=== PATIENT | female | born 1945 | race African-American/Black ===

== ENCOUNTER 2017-10-01 07:59 | Emergency (ER) | payer MEDICARE ==
--- NOTE | 2017-10-01 09:20 | RAD ---
TWO VIEWS CHEST: Comparison: 01-20-15 History: Cough. FINDINGS: Two views of the chest shows normal sized cardiomediastinal silhouette. There is blunting of both cos tophrenic angles which may represent scarring or small bilateral pleural effusions. This has not sign ificantly changed compared to the prior exam. IMPRESSION: Small bilateral pleural effusions versus bibasilar atelectasis/scarring. POS: [facility]
== END 2017-10-01 09:20 | disposition home or self-care (01) ==
LOC: ERS 07:59
DX: R05 Cough (principal)
CPT/HCPCS: 71020; 99406

== ENCOUNTER 2017-11-12 13:35 | Emergency (ER) | payer MEDICARE ==
[2017-11-12 14:24] LABS: #Eosinphils 0.1 thou/uL (0.0-0.7); #Lymphocytes 1.2 thou/uL (1.20-3.40); #Neutrophils 7.4 thou/uL (1.40-6.50); %Basophils 0.2 % (0.0-1.0); %Eosinophils 0.7 % (0.0-10.0); %Lymphocytes 12.4 % (21.0-51.0); %Monocytes 10.5 % (0.0-10.0); %Neutrophils 76.2 % (42.0-75.0); Hemoglobin 9.8 g/dL (12.0-16.0); Mean Corpuscular HGB CONC 32.1 g/dL (32.0-36.0); Mean Corpuscular Hemoglobin 29.2 pg (27.0-31.0); Mean Corpuscular Volume 90.8 fl (81.0-99.0); Mean Platelet Volume 7.1 fL (7.4-10.4); Platelet Count 478 thou/uL (130-400); RBC Distribution Width 12.4 % (11.5-14.5); Red Blood Cell (RBC) Count 3.37 mill/uL (4.20-5.40); White Blood Cell (WBC) Count 9.8 thou/uL (4.8-10.8)
[2017-11-12] MEDS ORDERED: ISOVUE-370 76%-LOCM 1 ML ONE (14:30)
--- NOTE | 2017-11-12 14:41 | RAD ---
CHEST 1 VIEW: Date: 11/12/17 HISTORY: 72-year-old female with chest pain. COMPARISON: 10/01/17. FINDINGS: There is moderate left pleural effusion which has developed since the prior study. There is slight co stophrenic angle blunting, although this actually appears slightly improved. There appear to be some nodular soft tissue mass changes involving the left superior mediastinal region and along the left mckeon perior and lateral chest wall, and in the left retrocardiac region. Heart size is somewhat difficult to assess because of the pleural effusion, but does not appear to be grossly enlarged. No overt acute edema. IMPRESSION: Increasing left pleural effusion. Fairly extensive pleural masses, including the superior left medias tinum, apex, and lateral chest wall, as well as a nodular focus in the left retrocardiac region. Find ings are certainly concerning for widespread pleural or pleural based mass/masses. Further evaluation with chest CT scan is recommended. Findings discussed with Dr. Webster in the ER at 1430 hours. CODE CR. POS: [facility]
[2017-11-12 14:51] LABS: ALT (SGPT) 11 U/L (8-55); AST (SGOT) 18 U/L (5-34); Albumin 3.9 g/dL (3.4-4.8); Alkaline Phosphatase 106 U/L (40-150); Anion Gap 14 mmol/L (10-20); BUN (Urea Nitrogen) 18 mg/dL (9.8-20.1); Bilirubin, Total 0.3 mg/dL (0.2-1.2); CK (CPK) 36 U/L (29-168); Calc. Creatinine Clearance 0 mL/min (70-130); Carbon Dioxide 27 mmol/L (23-31); Chloride 100 mmol/L (98-107); Estimated GFR-MDRD Greater than 90; Globulin 4.2 g/dL (2.4-3.5); Glucose 92 mg/dL (80-115); Lipase 15 U/L (8-78); Potassium 3.8 mmol/L (3.5-5.1); Protein, Total 8.1 g/dL (6.0-8.3); Sodium 137 mmol/L (136-145)
[2017-11-12 14:53] LABS: Calcium 12.9 mg/dL (7.8-10.44)
[2017-11-12 14:54] LABS: CKMB 1.2 ng/mL (0-6.6); Troponin I 0.018 ng/mL (< 0.028)
--- NOTE | 2017-11-12 15:49 | CT ---
CT PULMONARY ANGIOGRAM WITH IV CONTRAST AND 3D POSTPROCESSIN11/12/17 HISTORY: Dyspnea. FINDINGS: Comparison is made with the exam of 02/10/10. The pulmonary artery vasculature is well opacified without filling defects to suggest pulmonary embol ism. The thoracic aorta is well opacified without aneurysmal dissection. 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 There has been interval development of nodular circumferential pleural thickening in the left hemitho rax with a moderate sized left pleural effusion. There is a 1 cm mediastinal lymph node in the AP win daphnie, 8 mm right paraesophageal lymph node in the inferior posterior mediastinum and multiple enlarged lymph nodes in the left pericardiac region. There are mild emphysematous changes. Multiple small par enchymal nodules are seen in the right lung measuring up to 4 mm. Upper abdominal tomograms demonstra te a 1.7 cm left para-aortic lymph node. There are degenerative changes in the spine. IMPRESSION: 1. No CT evidence of pulmonary embolism. 2. Findings suspicious for pleural based malignancy/metastatic disease. POS: [facility]
--- NOTE | 2017-12-21 14:21 | EKG ---
Test Reason : Blood Pressure : / mmHG Vent. Rate : 111 BPM Atrial Rate : 111 BPM P-R Int : 144 ms QRS Dur : 076 ms QT Int : 326 ms P-R-T Axes : 053 049 026 degrees QTc Int : 443 ms Sinus tachycardia Otherwise normal ECG Confirmed by MICHELE NEGRO M.D. ([id number]), commissioning editor YANETH HAWKINS ([id number]) on 12/21/2017 2:21:02 PM Referred By: Confirmed By:MICHELE NEGRO M.D.
== END 2017-11-12 17:24 | disposition home or self-care (01) ==
LOC: ERS 13:35
DX: J91.8 Pleural effusion in other conditions classified elsewhere (principal); R91.8 Other nonspecific abnormal finding of lung field
CPT/HCPCS: 71045; 71275; 80053; 82553; 83690; 84484; 85025; 93005; 94760

== ENCOUNTER 2017-11-18 07:44 | Day surgery (SDC) | payer MEDICARE ==
--- NOTE | 2017-11-18 08:54 | PDOC.THORA ---
Thoracentesis Procedure Note - Procedure Date: 11/18/17 Time: 08:52 - PreProcedure Diagnosis: Left pleural effusion, suspected to be malignant - PostProcedure Diagnosis: Left pleural effusion, suspected to be malignant - Anesthesia Anesthesia: 1% Lidocaine without epinephrine - Description Patient tolerated procedure: well Procedure in Details: Informed consent obtained from patient. Time-out performed prior, and site marked as left. Chlorohexedine prep to site 1% lidocaine applied to entry site (5th-6th interspace at Left lateral scapular line posteriorly) Sail-f-jdagkhmh catheter inserted into left pleural space 470 ml of red/brown pleural fluid removed Well tolerated Specimens sent to pathology
[2017-11-18 09:28] LABS: Body Fluid Source THORACENTESIS FLD
[2017-11-18 09:29] LABS: BF Color Red; Clarity Cloudy/Turbid (Clear); RBC Background Count 0.006; Tube # EDTA
[2017-11-18 09:30] LABS: RBC Count-Automated 51000 /cumm; WBC/NonHematic-Auto 5320 /cumm
[2017-11-18 09:43] LABS: Pleural Fluid, Protein 4.6 g/dL
[2017-11-18 10:41] LABS: BF Segmented Neutrophils 5 %; Cell Count Non Hematic 31 %; Lymphocytes 64 %
== END 2017-11-18 08:55 | disposition home or self-care (01) ==
LOC: SDC 07:44
PROVIDERS: ATTEND Internal Medicine Critical Care Medicine
PROC: 0W9B3ZX Drainage of Left Pleural Cavity, Percutaneous Approach, Diagnostic (ICD-10-PCS; principal; 2017-11-18)
DX: J90 Pleural effusion, not elsewhere classified (principal); Z90.710 Acquired absence of both cervix and uterus; Z87.891 Personal history of nicotine dependence
CPT/HCPCS: 32554; 82150; 82945; 83615; 84157; 84478; 85060; 87070; 87116; 87205; 87206; 88112; 88305; 89051

== ENCOUNTER 2017-11-26 08:54 | Inpatient (IN) | payer MEDICARE ==
[2017-11-26] MEDS ORDERED: Fentanyl 100 MCG/2 ML VIAL ONE ×3 (09:27→13:57)
[2017-11-26] MEDS ORDERED: CEFAZOLIN/Water 2 GM/20 ML SYRINGE ONE (10:00)
[2017-11-26 10:10] LABS: #Monocytes 0.9 thou/uL (0.11-0.59); %Basophils 0.1 % (0.0-1.0); %Eosinophils 0.6 % (0.0-10.0); %Monocytes 13.2 % (0.0-10.0); %Neutrophils 71.2 % (42.0-75.0); Mean Corpuscular HGB CONC 31.7 g/dL (32.0-36.0); Mean Corpuscular Hemoglobin 28.4 pg (27.0-31.0); Mean Corpuscular Volume 89.7 fl (81.0-99.0); Mean Platelet Volume 6.7 fL (7.4-10.4); Platelet Count 517 thou/uL (130-400); RBC Distribution Width 12.3 % (11.5-14.5)
[2017-11-26 10:21] LABS: Anion Gap 10 mmol/L (10-20); BUN (Urea Nitrogen) 13 mg/dL (9.8-20.1); Calc. Creatinine Clearance 63 mL/min (70-130); Carbon Dioxide 33 mmol/L (23-31); Chloride 99 mmol/L (98-107); Estimated GFR-MDRD 85; Glucose 90 mg/dL (80-115); Potassium 3.6 mmol/L (3.5-5.1); Sodium 138 mmol/L (136-145)
[2017-11-26 10:25] LABS: Calcium 15.1 mg/dL (7.8-10.44)
[2017-11-26] MEDS ORDERED: Lidocaine 1% w/Epinephrine 1:200K 30 ML VIAL ONE (11:12)
[2017-11-26] MEDS ORDERED: Ondansetron HCl/PF 4 MG/2 ML Vial IVP PRN ×3 (12:25→14:11)
[2017-11-26] MEDS ORDERED: Promethazine HCl 25 MG/ML VIAL SLOW IVP PRN (12:25)
[2017-11-26] MEDS ORDERED: Promethazine HCl 25 MG/ML VIAL IM PRN ×3 (12:25→14:11)
--- NOTE | 2017-11-26 12:30 | OP ---
DATE OF PROCEDURE: 11/26/2017 PREOPERATIVE DIAGNOSIS: Left pleural effusions/chest wall mass. PROCEDURE: Left thoracoscopy converted to thoracotomy with lung biopsy of the left upper lobe and chest wall biopsy in multiple areas. PleurX catheter placement. SURGEON: Jeff Morfin M.D. ANESTHESIA: General endotracheal. ESTIMATED BLOOD LOSS: Approximately 400. DRAINS: A PleurX catheter and a 28 Italian straight chest tube. PROCEDURE IN DETAIL: After consent was obtained, the patient was brought to the operating room and placed in the supine position on the operating room table. Appropriate anesthetic monitor was placed and general endotracheal anesthesia induced. The patient was placed in right lateral decubitus position. Joints were appropriately padded and SCDs used. The left chest wall was prepped and draped in usual sterile fashion. Skin incision was made over where the thoracoscopy was performed which was just inferior to the tip of the scapula. Sharp dissection and cautery dissection was used to dissect down over the superior margin of the rib. Chest was bluntly entered. On inserting my finger there was extensive adhesions and lots of abnormal feeling tissue. I elected to abandon the thoracoscopy due to no free pleural space. Incision was extended for approximately a total of 6 cm. Chest wall retractor was placed. On entering the chest, there was extensive amount of chest wall involvement with tumor. The thoracoscope was used to fully explore the chest revealing lung and chest wall implants throughout the chest. Multiple areas of the chest wall were biopsied. There was an area in the left upper lobe which was easily biopsied and sent for frozen section. This returned as non-small cell lung cancer. A 28 Italian chest tube was placed to the apex. A PleurX catheter was then placed along the inferior border of the lung, tunneling subcutaneously and placing the cuff at the anterior axillary line. Catheter was secured to the skin with silk suture. Ribs were reapproximated with #1 Vicryl. Wounds were closed in layers and Dermabond applied to the skin. Sterile dressings were applied. The patient was awakened,extubated, and transferred to the recovery room in stable condition. Needle, sponge and instrument counts were all reported correct at the end of the procedure. [facility]
[2017-11-26] MEDS ORDERED: diphenhydrAMINE 25 MG CAP PO PRN (12:33)
[2017-11-26] MEDS ORDERED: diphenhydrAMINE 50 MG/ML VIAL IVP PRN (12:33)
[2017-11-26] MEDS ORDERED: Zolpidem Tartrate 5 MG TAB PO PRN (12:33)
[2017-11-26] MEDS ORDERED: Fentanyl 5000 MCG/250 ML CADD IVPB PRN (12:33)
[2017-11-26] MEDS ORDERED: diphenhydrAMINE 50 MG/ML VIAL IM PRN (12:33)
[2017-11-26] MEDS ORDERED: Naloxone HCl 0.4 mg/ml Vial IV PRN (12:33)
[2017-11-26] MEDS ORDERED: fentaNYL Citrate/PF 2,000 MCG in Sodium Chloride 0.9% 60 ML IV PRN (12:45)
[2017-11-26] MEDS ORDERED: Communication Order-Pharmacy FS SCH (12:45)
[2017-11-26] MEDS ORDERED: Sodium Chloride 0.9% 1,000 ML IV SCH ×2 (13:45→14:11)
[2017-11-26] MEDS ORDERED: HYDROcodone/Acetaminophen 5/325 mg Tablet PO PRN ×2 (14:11)
--- NOTE | 2017-11-26 14:27 | RAD ---
RADIOGRAPH CHEST 1 VIEW: Date: 11/26/2017 Time: 12:38 p.m. HISTORY: A 72-year-old female, status post left thoracotomy. COMPARISON: 11/12/2017 FINDINGS: Again noted is the large number of masses extensively throughout the entire left pleural space. The volume of loculated left pleural effusion has decreased since the prior study. There are now two lef t-sided chest tubes. Again noted are the left mediastinal masses. Tiny scattered pulmonary nodules in the right lung are visualized, at least some of which represent calcified granulomata. There is m ild blunting of the right lateral costophrenic angle. No right-sided air space opacity, edema, or pu lmonary vascular engorgement. No pneumothorax. There is a small cluster of surgical clips overlying the left mid-lower lung zone. IMPRESSION: 1. Status post left thoracotomy, now with two new left-sided chest tubes and a cluster of surgical c lips. 2. Evidence for extensive left pleural metastatic disease. 3. Interval decrease in size of left pleural effusion, now small. DESTIN [] POS: [facility]
[2017-11-26] MEDS ORDERED: Zoledronic Acid 4 MG, Admixture Fee 1 EACH in Sodium Chloride 0.9% 100 ML IVPB SCH (14:45)
--- NOTE | 2017-11-26 14:57 | CON ---
DATE OF CONSULTATION: 11/26/2017 CONSULTING PHYSICIAN: Dr. Morfin. REASON FOR CONSULTATION: Pleural based malignancy. HISTORY OF PRESENT ILLNESS: Ms. Mcknight is a 72-year-old female who is well known to me from recent ou tpatient evaluation for malignant pleural effusion. She underwent a nondiagnostic thoracentesis in november and she was brought back today for thoracoscopy with findings of non-small cell cancer. Other significant findings include calcium level of 15. PAST MEDICAL HISTORY: See my history and physical dictated on 11/14/2017, which is in the computer. PHYSICAL EXAMINATION: VITAL SIGNS: O2 sats 100%, respiratory rate 14, pulse 112, blood pressure 120/80. GENERAL: She is awake and alert, in no distress. HEENT: Unremarkable. NECK: No JVD. LUNGS: Diminished breath sounds in the left base, right side clear. CARDIOVASCULAR: S1, S2 regular. ABDOMEN: Soft. EXTREMITIES: No edema. LABORATORY DATA: Reviewed. ASSESSMENT: 1. 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 2. Hypercalcemia of malignancy. PLAN: Discussed with pharmacy. We will go ahead and give the patient doses of Zometa 4 mg x1 as a b isphosphonate to lower her calcium level. Eventually, she will need Hematology/Oncology input. I ap preciate Dr. Morfin's help in managing this case.
[2017-11-26 14:59] VITALS: BMI 21.9
--- NOTE | 2017-11-26 15:10 | CON-2 ---
DATE OF CONSULTATION: 11/26/2017 ATTENDING: Dr. Hogue. RESIDENT: Jarod Jesus M.D. PRIMARY CARE PHYSICIAN: Dr. Ginette Poole M.D. CHIEF COMPLAINT: Consult for medical management by CV Surgery, Dr. Morfin. HISTORY OF PRESENT ILLNESS: This is a 72-year-old female clinic patient with past medical history of tobacco use, hypercalcemia up to 13.2 and hyperlipidemia who initially presented to the ER for evaluation of shortness of breath back at the beginning of November. At this time, CT scan performed of the chest showing pleural masses concerning for possible malignancy. The patient was followed up with Pulmonology, Dr. Bates who reportedly per CV surgeon attempted thoracentesis, but was unable to collect any fluid. At this time, Dr. Morfin with CV Surgery was contacted and the patient subsequently underwent a thoracoscopy, which was then converted to a thoracotomy with lung biopsy of the left upper lobe as well as multiple chest wall biopsies and PleurX catheter placement. In clinic, the patient with elevated calcium, complaining of fatigue which dates back to beginning of this year with high calcium per clinic records to 13.2. Subsequent workup was obtained with low level of vitamin D25 at 23 nanograms per mL. A suppressed anti-parathyroid hormone at less than 3.0 and elevated parathyroid related peptide at 5.3. The patient also endorses some muscle cramping as well during the limited interview that was able to be obtained while patient was in the PACU prior to transfer to floor postop. PAST MEDICAL HISTORY: 1. Hyperlipidemia. 2. Anemia of chronic disease. 3. History of bilateral fibroid adnexal masses status post hysterectomy with BSO. 4. Pleural masses. 5. Hypercalcemia. PAST MEDICAL HISTORY: 1. Laparoscopic BSO. 2. Thoracoscopy converted to thoracotomy with left upper lobe and chest wall biopsies. ALLERGIES: No known drug allergies. MEDICATIONS: Atorvastatin 10 mg p.o. at bedtime. FAMILY HISTORY: 1. Hypertension. 2. Chronic obstructive pulmonary disease. SOCIAL HISTORY: The patient is a former tobacco user. The patient states she smoked for approximately 12 years Unable to obtain number of packs secondary to waxing and weaning level of consciousness, status post sedation in the PACU. No current alcohol or drug use. REVIEW OF SYSTEMS: Unable to be obtained secondary to patient's current mentation, status post anesthesia from her recent procedure. PHYSICAL EXAMINATION: VITAL SIGNS: Blood pressure 94/56, pulse 94, respiratory rate 16, T-max 36 degrees Celsius, pulse ox 98% on nasal cannula. Weight current 62.14 kilograms. GENERAL: Alert and oriented; however, sleepy, falling asleep during interview and very soft spoken, in no acute distress. Thin. EYES: PERRLA, EOMI. Conjunctivae within normal limits. ENT: Nasal mucosa and oropharynx within normal limits. NECK: Supple, no cervical lymphadenopathy, no thyromegaly, no bruits. CARDIOVASCULAR: Regular rate and rhythm, no murmur, no gallops, 2+ radial and pedal pulses bilaterally. RESPIRATORY: Normal respiratory effort, no retractions. Chest tube placed in left lung field on wall suction with lung sounds difficult to hear on the left side secondary to this. Right lung clear to auscultation. SKIN: Warm, dry. No cyanosis. No lesions. ABDOMEN: Soft, nontender to palpation. Bowel sounds x4. No masses or distention. EXTREMITIES: No clubbing, no cyanosis, no edema. MUSCULOSKELETAL: Structure within normal limits, tone within normal limits. Full range of motion. NEUROLOGIC: No focal deficits. Sensation within normal limits. PSYCHIATRIC: Appropriate mood and affect. LABORATORY DATA: White blood cells 7.0, hemoglobin 10.0 with MCV of 89.7, hematocrit 31.4, platelets 517. Sodium 138, potassium 3.6, chloride 99, bicarbonate 33, BUN 13, creatinine 0.81, glucose 90, calcium 15.1. ASSESSMENT AND PLAN: A 72-year-old female with: 1. Pleural mass, likely non-small cell carcinoma with effusion - elevated parathyroid related peptide was found in the outpatient setting with suppressed levels of an intact parathyroid hormone as well as vitamin D25. The patient is a former smoker, making this most likely diagnosis; however, cannot rule out other causes such as breast cancer. Patient states she has not had a mammogram ; however, no breast masses identified on imaging from prior hospitalizations. If pathology is not consistent w/ non-small cell, will likely recommend obtaining CT-AP to rule out other possible primaries. - Postop management and pain control per primary team. Patient is already extubated and satting well on minimal O2 requirement on nasal cannula. - We will recommend consultation to oncology, pending pathology results for further treatment of this likely malignancy. 2. Hypercalcemia, likely 2/2 #1 - The patient with severe hypercalcemia greater than 14 - Volume expansion with normal saline for a goal urine output of 100-150 mL per hour with titration of IVF rate as needed. - Administer zoledronic acid 4 mg IV per Pulm recs - Repeat Calcium q12 hrs - Long-term management of patient's hypercalcemia, pending, cause which will be better able to be determined, status post pathology on tissue samples obtained during procedure earlier today. 3. Hyperlipidemia. - We will continue with home atorvastatin 10 mg p.o. at bedtime once tolerating p.o. 4. Anemia of chronic disease, likely related to #1. - Hemoglobin at baseline from prior lab values obtained in clinic as well as referencing prior ER hospitalizations back to 2014. History and physical exam as well as management was discussed with Dr. Hogue. [facility]
[2017-11-26] MEDS: Sodium Chloride 0.9% 1,000 ML IV SCH ×2 (15:17→23:19)
--- NOTE | 2017-11-26 16:01 | EKG ---
Test Reason : PREOP Blood Pressure : / mmHG Vent. Rate : 102 BPM Atrial Rate : 102 BPM P-R Int : 168 ms QRS Dur : 086 ms QT Int : 322 ms P-R-T Axes : 077 072 046 degrees QTc Int : [address] elevation, consider early repolarization, pericarditis, or injury Abnormal ECG Confirmed by NACHO GARCES ([id number]) on 11/26/2017 4:00:50 PM Referred By: Juan Jose ONTIVEROS Confirmed By:NACHO GARCES
[2017-11-26] MEDS ORDERED: Lidocaine 1% PF 5 ML VIAL ONE (16:40)
[2017-11-26] MEDS ORDERED: Glycopyrrolate 0.2 MG/ML 5 ML SYRINGE ONE (16:40)
[2017-11-26] MEDS ORDERED: Ondansetron HCl/PF 4 MG/2 ML Vial ONE (16:40)
[2017-11-26] MEDS ORDERED: PHENYLEPHRINE-NS 100 MCG/ML 10 ML SYRINGE ONE (16:40)
[2017-11-26] MEDS ORDERED: Propofol 200 MG/20 ML VIAL ONE (16:40)
[2017-11-26] MEDS: CEFAZOLIN/Water 2 GM/20 ML SYRINGE SLOW IVP SCH (19:54)
[2017-11-27] MEDS: CEFAZOLIN/Water 2 GM/20 ML SYRINGE SLOW IVP SCH ×3 (02:32→19:44)
[2017-11-27 05:51] LABS: Anion Gap 10 mmol/L (10-20); BUN (Urea Nitrogen) 9 mg/dL (9.8-20.1); Calc. Creatinine Clearance 70 mL/min (70-130); Calcium 11.4 mg/dL (7.8-10.44); Carbon Dioxide 27 mmol/L (23-31); Chloride 105 mmol/L (98-107); Estimated GFR-MDRD Greater than 90; Glucose 103 mg/dL (80-115); Potassium 3.8 mmol/L (3.5-5.1); Sodium 138 mmol/L (136-145)
[2017-11-27 05:54] LABS: #Lymphocytes 0.5 thou/uL (1.20-3.40); #Monocytes 0.7 thou/uL (0.11-0.59); #Neutrophils 7.4 thou/uL (1.40-6.50); %Basophils 0.1 % (0.0-1.0); %Eosinophils 0.3 % (0.0-10.0); %Lymphocytes 6.2 % (21.0-51.0); %Monocytes 7.6 % (0.0-10.0); %Neutrophils 85.8 % (42.0-75.0); Hemoglobin 6.6 g/dL (12.0-16.0); Mean Corpuscular HGB CONC 31.6 g/dL (32.0-36.0); Mean Corpuscular Hemoglobin 28.7 pg (27.0-31.0); Mean Corpuscular Volume 90.7 fl (81.0-99.0); Platelet Count 340 thou/uL (130-400); RBC Distribution Width 12.3 % (11.5-14.5); Red Blood Cell (RBC) Count 2.29 mill/uL (4.20-5.40); White Blood Cell (WBC) Count 8.7 thou/uL (4.8-10.8)
[2017-11-27] MEDS: Sodium Chloride 0.9% 1,000 ML IV SCH (06:49)
[2017-11-27] MEDS ORDERED: Furosemide 20 MG/2 ML VIAL SLOW IVP SCH (07:15)
--- NOTE | 2017-11-27 08:32 | RAD ---
CHEST ONE VIEW: History: Follow up status post thoracotomy. Comparison: 11-26-17 FINDINGS: Two left chest tubes are again noted in place. There has been development of left sided subcutaneous emphysema extending from the lower left chest up into the left neck which is markedly worse than on t he prior study. There is a small left sided pneumothorax in the inferior left lateral chest and costo phrenic angle region. Extensive nodularity involving essentially the entire left pleura with more pro minent nodularity in the left apex and left periaortic region. The right lung remains clear. IMPRESSION: Two left chest tubes in place with a very small inferolateral left sided pneumothorax at the level of the costophrenic angle with marked progressive subcutaneous emphysema involving the left chest and e xtending up into the left neck which is considerably worse when compared to the prior study. Stable r ight chest. Continued short term follow up. POS: [facility]
[2017-11-27] MEDS: Atorvastatin Calcium 10 MG TAB PO SCH (08:36)
--- NOTE | 2017-11-27 09:02 | PDOC.FM ---
- Subjective Subjective: Epidosed of hypotension overnight w/ administration of albumin by CV surgery. Repeat calcium <14 and downtrending. No complaints this AM from patient. Pain controlled. VSS, afebrile. - Objective MAR Reviewed: Yes Vital Signs & Weight: Vital Signs (12 hours) Temp 11/27/17 08:00 98.7 F 11/27/17 04:00 99.1 F 11/27/17 00:00 99.2 F Weight Weight 58.5 kg Most Recent Monitor Data Heart Rate from ECG 112 NIBP 94/43 NIBP BP-Mean 77 Respiration from ECG 18 SpO2 98 I&O: 11/26/17 11/27/17 11/28/17 06:59 06:59 06:59 Intake Total 3182.1 Output Total 1057 75 Balance 2125.1 -75 Result Diagrams: 11/27/17 05:24 11/27/17 05:24 <Jarod Jesus - Last Filed: 11/27/17 09:00> - Objective Vital Signs & Weight: Vital Signs (12 hours) Temp Pulse Resp BP Pulse Ox 11/27/17 10:13 99.2 F 126 H 20 121/49 L 93 L 11/27/17 08:00 98.7 F 11/27/17 04:00 99.1 F 11/27/17 00:00 99.2 F Weight Weight 58.5 kg Most Recent Monitor Data Heart Rate from ECG 112 NIBP 94/43 NIBP BP-Mean 77 Respiration from ECG 18 SpO2 98 I&O: 11/26/17 11/27/17 11/28/17 06:59 06:59 06:59 Intake Total 3182.1 0 Output Total 1057 75 Balance 2125.1 -75 Result Diagrams: 11/27/17 05:24 11/27/17 05:24 <Oni Vivar - Last Filed: 11/27/17 10:45> Phys Exam - Physical Examination Constitutional: NAD HEENT: PERRLA mild crepitus on palpation of left neck c/w imaging findings Neck: no nodes Respiratory: no wheezing Chest tubes to wall suction obscurring left lung field ascultation Cardiovascular: RRR, no significant murmur Gastrointestinal: soft, non-tender Musculoskeletal: pulses present Neurological: moves all 4 limbs Psychiatric: normal affect <Jarod Jesus - Last Filed: 11/27/17 09:00> Dx/Plan (1) Pleural mass Code(s): J94.9 - PLEURAL CONDITION, UNSPECIFIED Status: Acute Plan: POD#1 s/p thorcotomy w/ left upper lobe and chest wall bx w/ Pluer-X cath placement Post-op management per CV surgery Hgb post op down to 6.6 from baseline of 10.0 pre-op w/ 2U PRBC to be administered this AM Tissue pathology pending Recs for Onc consult w/ path results (2) Hypercalcemia Code(s): E83.52 - HYPERCALCEMIA Status: Acute Plan: Elevated PTHrp w/ supporessed intact PTH and D-25 levels in outside clinic records in setting of pleural mass Likely malignany related w/ non-small cell carcinoma Downtrending from 15.1 w/ normal calcium pre-op to 11.4 this AM s/p zometa and IVF administration Will continue to monitor calcium levels w/ routine AM labs w/ repeat admin of zometa if indicated in 7 days (3) Hyperlipidemia Code(s): E78.5 - HYPERLIPIDEMIA, UNSPECIFIED Status: Acute Plan: Cont. w/ home atorvastatin <Jarod Jesus - Last Filed: 11/27/17 09:00> Attending Addendum - Attending Addendum I personally evaluated the patient and discussed the management with Dr. [] I agree with the History, Examination, Assessment and Plan documented above with any addition or exceptions noted below. Nrs. Mcknight likely has non-small cell lung cancer but pathology pending. S he has hypercalcemia of malignancy and received IV Zometa resulting in a drop of her calcium from 15 to about 11; she is asymptomatic and currently offers no new complaints. ncology will be consulted when path returned. We will continue to monitor her calcium and use Zometa if needed until definitive therapy from oncology. <Oni Vivar - Last Filed: 11/27/17 10:45>
--- NOTE | 2017-11-27 09:51 | PDOC.PULPN ---
Progress Note: Subj/Obj - Subjective Date: 11/27/17 Time: 09:49 Narrative: Doing better - Objective Allergies/Adverse Reactions: Allergies Allergy/AdvReac Type Severity Reaction Status Date / Time No Known Allergies Allergy Verified 11/25/17 16:58 MAR Reviewed: Yes Vital Signs: Vital Signs Temp 98.7 F 11/27/17 08:00 Pulse 106 H 11/26/17 20:00 Resp 22 H 11/26/17 20:00 BP Pulse Ox 97 11/26/17 20:00 Intake & Output 11/26/17 11/27/17 11/27/17 18:59 06:59 18:59 Intake Total 495 2687.1 Output Total 197 860 75 Balance 298 1827.1 -75 Weight 131 lb 9.855 oz 128 lb 15.527 oz Intake: Intake, IV Amount 495 2327.1 Albumin 5% 25 gm IVPB NOW 459 [facility] Rx#:[id number] Sodium Chloride 0.9% 1, 495 459 000 ml @ 125 mls/hr IV . Q8H [facility] Rx#:[id number] Sodium Chloride 0.9% 1, 1384 000 ml @ 125 mls/hr IV . Q8H [facility] Rx#:[id number] fentaNYL Citrate/PF 2,000 25.1 mcg In Sodium Chloride 0 .9% 60 ml @ As Directed IV INF PRN Rx#:[id number] Oral 360 Output: Chest Tube Drainage 80 60 0 Left Lateral Chest Tube 80 60 0 to Atrium Output, [place] 117 800 75 Other: *Amount Reported-OUT EBL 500 UOP 300 Voiding Method Indwelling Catheter Indwelling Catheter # Bowel Movements 0 Progress Note: Exam - Physical Exam Constitutional: NAD HEENT: PERRLA, sclera anicteric Neck: no nodes Cardiovascular: RRR Focused Respiratory Location: decreased breath sounds: Left, dullness to percussion: Left Gastrointestinal: soft, non-tender Musculoskeletal: no edema Neurological: non-focal Lymphatic: no nodes Psychiatric: normal affect, A&O x 3 Skin: no rash Progress Note: Data - Labs Result Diagrams: 11/27/17 05:24 11/27/17 05:24 Progress Note: A/P - Problems (1) Hypercalcemia Current Visit: Yes Status: Acute Code(s): E83.52 - HYPERCALCEMIA (2) Pleural mass Current Visit: Yes Status: Acute Code(s): J94.9 - PLEURAL CONDITION, UNSPECIFIED - Plan Plan: Given Zometa yesterday for hypercalcemia, with subsequent improvement in Ca level Await path
[2017-11-27] MEDS ORDERED: Fentanyl 100 MCG/2 ML VIAL ONE (17:37)
[2017-11-27] MEDS: Fentanyl 100 MCG/2 ML VIAL SLOW IVP PRN ×2 (17:47→20:31)
[2017-11-27] MEDS ORDERED: Fentanyl 100 MCG/2 ML VIAL SLOW IVP PRN ×2 (18:10)
[2017-11-27 20:02] LABS: Hemoglobin 9.9 g/dL (12.0-16.0); Platelet Count 277 thou/uL (130-400)
[2017-11-28] MEDS: Fentanyl 100 MCG/2 ML VIAL SLOW IVP PRN ×5 (01:05→19:50)
[2017-11-28] MEDS: CEFAZOLIN/Water 2 GM/20 ML SYRINGE SLOW IVP SCH ×2 (02:32→14:13)
[2017-11-28 04:27] LABS: #Lymphocytes 0.7 thou/uL (1.20-3.40); #Monocytes 1.3 thou/uL (0.11-0.59); #Neutrophils 11.1 thou/uL (1.40-6.50); %Basophils 0.1 % (0.0-1.0); %Eosinophils 0.3 % (0.0-10.0); %Lymphocytes 5.3 % (21.0-51.0); %Monocytes 9.7 % (0.0-10.0); %Neutrophils 84.6 % (42.0-75.0); Mean Corpuscular HGB CONC 32.4 g/dL (32.0-36.0); Mean Corpuscular Hemoglobin 29.3 pg (27.0-31.0); Mean Corpuscular Volume 90.5 fl (81.0-99.0); Mean Platelet Volume 7.9 fL (7.4-10.4); Platelet Count 308 thou/uL (130-400); RBC Distribution Width 12.3 % (11.5-14.5); Red Blood Cell (RBC) Count 3.41 mill/uL (4.20-5.40); White Blood Cell (WBC) Count 13.1 thou/uL (4.8-10.8)
[2017-11-28 04:32] LABS: Anion Gap 14 mmol/L (10-20); BUN (Urea Nitrogen) 8 mg/dL (9.8-20.1); Calc. Creatinine Clearance 69 mL/min (70-130); Calcium 10.2 mg/dL (7.8-10.44); Carbon Dioxide 24 mmol/L (23-31); Chloride 103 mmol/L (98-107); Estimated GFR-MDRD Greater than 90; Glucose 81 mg/dL (80-115); Potassium 3.2 mmol/L (3.5-5.1); Sodium 138 mmol/L (136-145)
[2017-11-28] MEDS ORDERED: Potassium Chloride 20 MEQ TAB PO SCH (06:00)
--- NOTE | 2017-11-28 08:13 | RAD ---
SINGLE VIEW OF THE CHEST: COMPARISON: 11/27/17. HISTORY: Status post thoracotomy with left chest tube/pneumothorax. FINDINGS: A single view of the chest shows a normal-size cardiomediastinal silhouette. There are left-sided ch est tubes. There is pleural thickening in the left thorax. No obvious pneumothorax is seen. Air is seen in the left chest wall. There is likely a small left pleural effusion. IMPRESSION: Status post thoracotomy with small left pleural effusion. POS: [facility]
--- NOTE | 2017-11-28 08:55 | PDOC.PULPN ---
Progress Note: Subj/Obj - Subjective Date: 11/28/17 Time: 08:53 Narrative: Constipated. Otherwise OK with minimal pain - Objective Allergies/Adverse Reactions: Allergies Allergy/AdvReac Type Severity Reaction Status Date / Time No Known Allergies Allergy Verified 11/25/17 16:58 MAR Reviewed: Yes Vital Signs: Vital Signs Temp 98.2 F 11/28/17 08:00 Pulse 128 H 11/28/17 08:00 Resp 25 H 11/28/17 08:00 BP 121/49 L 11/27/17 10:13 Pulse Ox 95 11/28/17 08:00 Intake & Output 11/27/17 11/28/17 11/28/17 18:59 06:59 18:59 Intake Total 1584 390 Output Total 1145 960 160 Balance 439 -570 -160 Weight 126 lb 1.671 oz Intake: Intake, IV Amount 1584 Sodium Chloride 0.9% 1, 1584 000 ml @ 125 mls/hr IV . Q8H [facility] Rx#:[id number] Oral 390 Blood Product 0 Packed Cells - 0 Leukoreduced Unit [id number] Packed Cells - 0 Leukoreduced Unit [id number] Output: Chest Tube Drainage 0 20 10 Left Lateral Chest Tube 0 20 10 to Atrium Output, [place] 1145 940 150 Other: Voiding Method Indwelling Catheter Indwelling Catheter Indwelling Catheter # Bowel Movements 0 Progress Note: Exam - Physical Exam Constitutional: NAD HEENT: PERRLA, sclera anicteric Neck: no JVD Cardiovascular: RRR Focused Respiratory Location: decreased breath sounds: Left Deviation from normal: left chest tube and pleurx Gastrointestinal: soft, non-tender Musculoskeletal: no edema Neurological: non-focal, moves all 4 limbs Lymphatic: no nodes Psychiatric: normal affect, A&O x 3 Skin: no rash Progress Note: Data - Labs Result Diagrams: 11/28/17 01:34 11/28/17 01:34 Progress Note: A/P - Problems (1) Hypercalcemia Current Visit: Yes Status: Acute Code(s): E83.52 - HYPERCALCEMIA (2) Pleural mass Current Visit: Yes Status: Acute Code(s): J94.9 - PLEURAL CONDITION, UNSPECIFIED - Plan Plan: Increase activity Calcium level better after Zometa home soon onc consult
--- NOTE | 2017-11-28 09:02 | PDOC.FM ---
- Subjective Subjective: Pt w/ PVC's overnight. complains of mild pain this AM while eating breakfast. Chest tube to set water seal this AM. No other complaints. - Objective MAR Reviewed: Yes Vital Signs & Weight: Vital Signs (12 hours) Temp Pulse Resp Pulse Ox 11/28/17 08:00 98.2 F 128 H 25 H 95 11/28/17 07:03 96 11/28/17 04:00 98.6 F 11/27/17 23:00 98.3 F Weight Weight 57.2 kg Most Recent Monitor Data Heart Rate from ECG 128 NIBP 136/83 NIBP BP-Mean 110 Respiration from ECG 31 SpO2 95 I&O: 11/27/17 11/28/17 11/29/17 06:59 06:59 06:59 Intake Total 3182.1 1974 Output Total 1057 2105 160 Balance 5.1 -131 -160 Result Diagrams: 11/28/17 01:34 11/28/17 01:34 <Jarod Jesus - Last Filed: 11/28/17 08:57> - Objective Vital Signs & Weight: Vital Signs (12 hours) Temp Pulse Resp Pulse Ox 11/28/17 08:00 98.2 F 128 H 25 H 95 11/28/17 07:03 96 11/28/17 04:00 98.6 F 11/27/17 23:00 98.3 F Weight Weight 57.2 kg Most Recent Monitor Data Heart Rate from ECG 123 NIBP 135/69 NIBP BP-Mean 108 Respiration from ECG 32 SpO2 96 I&O: 11/27/17 11/28/17 11/29/17 06:59 06:59 06:59 Intake Total 3182.1 1974 240 Output Total 1057 2105 420 Balance 3.1 -131 -180 Result Diagrams: 11/28/17 01:34 11/28/17 01:34 <Freddy Bowen - Last Filed: 11/28/17 10:58> Phys Exam - Physical Examination Constitutional: NAD HEENT: PERRLA slightly decreased lung sounds left lung field Cardiovascular: no significant murmur tachycardic Gastrointestinal: soft, non-tender Neurological: moves all 4 limbs Psychiatric: normal affect <Jarod Jesus - Last Filed: 11/28/17 08:57> Dx/Plan (1) Pleural mass Code(s): J94.9 - PLEURAL CONDITION, UNSPECIFIED Status: Acute Plan: POD#2 s/p thorcotomy w/ left upper lobe and chest wall bx w/ Pluer-X cath placement Post-op management per CV surgery Hgb back to baseline this AM s/p 2 U PRBC transfused yesterday Tissue pathology showing SCC moderately differentiated. Onc consulted this AM Pt w/ temp 100.5 yesterday afternoon which has since resolved. Likely 2/2 atelectasis. C/w Ancef per primary team. If pt re-fevers will kelley culture and broaden abx coverage. (2) Hypercalcemia Code(s): E83.52 - HYPERCALCEMIA Status: Acute Plan: Elevated PTHrp w/ supporessed intact PTH and D-25 levels in outside clinic records in setting of pleural mass Likely malignany related w/ non-small cell carcinoma Downtrending from 15.1 to 10.2 this Am s/p zometa administration Will continue to monitor calcium levels w/ routine AM labs w/ repeat admin of zometa if indicated in 7 days (3) Hyperlipidemia Code(s): E78.5 - HYPERLIPIDEMIA, UNSPECIFIED Status: Acute Plan: Cont. w/ home atorvastatin <Jarod Jesus - Last Filed: 11/28/17 08:57> Attending Addendum - Attending Addendum Date/Time: 11/28/17 1054 I personally evaluated the patient and discussed the management with Dr. Jesus I agree with the History, Examination, Assessment and Plan documented above with any addition or exceptions noted below. patient doing well Pathology back SCC , Oncology has been consulted , EKG for persistent tachycardia no current fever and pain appears controlled. <Freddy Bowen - Last Filed: 11/28/17 10:58>
[2017-11-28] MEDS: Atorvastatin Calcium 10 MG TAB PO SCH (09:24)
[2017-11-28] MEDS: Polyethylene Glycol 3350 17 GM Packet PO SCH (09:24)
[2017-11-28] MEDS: Docusate 100 MG CAP PO SCH ×2 (09:24→20:10)
--- NOTE | 2017-11-28 16:02 | EKG ---
Test Reason : Blood Pressure : / mmHG Vent. Rate : 122 BPM Atrial Rate : 122 BPM P-R Int : 160 ms QRS Dur : 082 ms QT Int : 296 ms P-R-T Axes : 068 066 027 degrees QTc Int : 421 ms Sinus tachycardia Otherwise normal ECG Confirmed by NACHO GARCES ([id number]) on 11/28/2017 4:02:23 PM Referred By: Casie COLLINS Confirmed By:NACHO GARCES
--- NOTE | 2017-11-28 17:51 | CON ---
DATE OF CONSULTATION: 11/28/2017 REASON FOR CONSULTATION: Lung cancer. HISTORY OF PRESENT ILLNESS: Ms. Mcknight is a 72-year-old female who was seen by Pulclara dela cruz in late October for abnormal CT finding. She had a CT angiogram which showed a circumferential pleural based mass and a left pleural effusion. She was seen by Dr. Bates and thoracentesis was pe rformed which was unfortunately nondiagnostic. She was sent to our clinic for further workup and saw Dr. Gallegos on 11/20/2017. He then referred her to Dr. Morfin, who admitted for a left thoracoscopy, which was converted to a thoracotomy and PleurX catheter placement. She had multiple chest wall imp lants on evaluation and multiple areas were biopsied. She remains in the ICU and is recovering. Pat hology confirmed squamous cell lung cancer. PAST MEDICAL HISTORY: 1. Anemia. 2. Bilateral fibroid and adnexal mass. 3. Hemorrhoids. 4. Former smoker. PAST SURGICAL HISTORY: Laparoscopic hysterectomy. ALLERGIES: No known drug allergies. HOME MEDICATIONS: Atorvastatin 10 mg daily. FAMILY HISTORY: Her mother had an unknown type of cancer. Family history of hypertension, heart dis ease, and COPD. SOCIAL HISTORY: She is . She has 2 children. She lives alone. She is a former smoker with 7-1/2 pack year history of smoking, quit over 10 years ago. No alcohol or illicit drug use. REVIEW OF SYSTEMS: CONSTITUTIONAL: Positive for fatigue, loss of appetite and weight loss. EYES: No blurred or double vision. ENT: No pain, hoarseness, sore throat, or dysphagia. CARDIOVASCULAR: No chest pain, palpitations or syncope. Positive for occasional dizziness. RESPIRATORY: Denies shortness of breath, dyspnea on exertion. GASTROINTESTINAL: Positive for nausea, vomiting, and abdominal pain. GENITOURINARY: No dysuria or hematuria. MUSCULOSKELETAL: Positive for joint and back pain. SKIN: No rash or pruritus. NEUROLOGIC: Positive for weakness. No headache, seizures, numbness or tingling. HEMATOLOGIC: No bruising, bleeding or clotting. PHYSICAL EXAMINATION: VITAL SIGNS: Temperature is 98.8, pulse is 127, respiratory rate 30, blood pressure 141/63, 99% on 2 liters. GENERAL: Well-developed, well-nourished female, in no acute distress. HEENT: Normocephalic, atraumatic. Pupils equal and reactive to light. NECK: Supple. CARDIOVASCULAR: Shows tachycardia. LUNGS: Diminished in the left base. Chest tube in her left axilla. EXTREMITIES: No clubbing, cyanosis or edema. SKIN: No rash. HEMATOLOGIC: No petechia or purpura. NEUROLOGICAL: Nonfocal. PSYCHIATRIC: The patient is alert and oriented. PERTINENT LABORATORY AND X-RAYS: Current WBCs of 13.1, hemoglobin 10, hematocrit 30.9, platelet coun t 308,000. She is 85% neutrophils, 5% lymphocytes. Sodium is 138, potassium 3.2, chloride 103, CO2 is 24, BUN is 8, creatinine 0.7. BNP is 262. Her calcium is 10.2. IMPRESSION: 1. Squamous cell lung cancer. 2. Hypercalcemia, resolved. DISCUSSION: The patient will recover from her procedure. My understanding is she will go home with PleurX catheter. Plan to see Dr. Gallegos in the next week or so to discuss chemotherapy options. We will follow her hospital course remotely. Thank you for the consult.
[2017-11-29] MEDS: Fentanyl 100 MCG/2 ML VIAL SLOW IVP PRN ×2 (01:38→04:58)
--- NOTE | 2017-11-29 07:15 | DIS ---
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 PROCEDURES: Left thoracoscopy/thoracotomy with lung and chest wall biopsies. PleurX catheter placem ent. DESCRIPTION OF HOSPITAL STAY: Ms. Mcknight presented to my office with chest wall pain, a thoracentesis which was negative for malignancy, multiple pleural based chest wall densities and lung densities on CT scan, and severe hypercalcemia. She underwent left thoracoscopy followed by thoracotomy due to n o space with biopsy of lung masses and chest wall masses, which returned to squamous cell carcinoma. She had seen Dr. Gallegos in the past. We will follow her up as an outpatient. Her chest tube was r emoved today. She has had no drainage at all from the chest tube. There was very little space withi n the chest cavity; therefore, the PleurX was removed - the patient's family was very uncomfortable w ith the prospect of dealing with the catheter at home and therefore we removed at the bedside also. She is being discharged to home and to follow up with Dr. Gallegos [facility]
--- NOTE | 2017-11-29 07:46 | RAD ---
SINGLE VIEW OF THE CHEST: COMPARISON: 11/28/17. HISTORY: Status post thoracostomy. FINDINGS: A single view of the chest shows an enlarged but stable cardiomediastinal silhouette. The chest tube s are unchanged in position. Pleural thickening is seen in the left thorax. No obvious pneumothorax is seen. A small left pleural effusion is seen. Air is again seen in the left chest wall. IMPRESSION: Small left pleural effusion and pleural thickening in the left thorax without pneumothorax. POS: OFF
[2017-11-29 08:03] VITALS: TEMP 98.4
--- NOTE | 2017-11-29 08:42 | PRG ---
DATE OF SERVICE: 11/26/2017 SUBJECTIVE: The patient is somewhat confused this morning, but is scheduled to go home. OBJECTIVE: VITAL SIGNS: Temperature is 98.4, pulse 117, blood pressure 143/67. HEENT: Unremarkable. NECK: No JVD. LUNGS: Diminished breath sounds in the left base, right side clear. CARDIAC: S1 and S2 regular. ABDOMEN: Soft. EXTREMITIES: No edema. LABORATORY DATA: Path report showed squamous cell carcinoma of left pleural space. Chest tube and P leurx catheter have been removed. ASSESSMENT: Non-small cell lung cancer, pleural space favoring lung. PLAN: She is being discharged home with follow up Oncology office, hopefully confusion will resolve once she gets home in a more familiar environment.
[2017-11-29] MEDS: Docusate 100 MG CAP PO SCH (08:47)
[2017-11-29] MEDS: Polyethylene Glycol 3350 17 GM Packet PO SCH (08:47)
[2017-11-29] MEDS: Atorvastatin Calcium 10 MG TAB PO SCH (08:47)
--- NOTE | 2017-11-29 09:14 | PDOC.FM ---
- Subjective Subjective: MICHELLE overnight, Chest tube and Pleur-X pulled by CV surg this AM. Pt wanting to go home. No new complaints. - Objective Vital Signs & Weight: Vital Signs (12 hours) Temp Pulse Resp Pulse Ox 11/29/17 08:00 98.4 F 118 H 18 93 L 11/29/17 04:00 98.8 F 11/28/17 23:00 98.7 F Weight Weight 59 kg Most Recent Monitor Data Heart Rate from ECG 117 NIBP 143/67 NIBP BP-Mean 114 Respiration from ECG 26 SpO2 93 I&O: 11/28/17 11/29/17 11/30/17 06:59 06:59 06:59 Intake Total 1973 390 Output Total 2104 2079 210 Balance -131 -1690 -210 Result Diagrams: 11/28/17 01:34 11/28/17 01:34 <Jarod Jesus - Last Filed: 11/29/17 09:12> - Objective Vital Signs & Weight: Vital Signs (12 hours) Temp Pulse Resp Pulse Ox 11/29/17 08:00 98.4 F 118 H 18 93 L 11/29/17 04:00 98.8 F Weight Weight 59 kg Most Recent Monitor Data Heart Rate from ECG 129 NIBP 126/71 NIBP BP-Mean 76 Respiration from ECG 32 SpO2 90 I&O: 11/28/17 11/29/17 11/30/17 06:59 06:59 06:59 Intake Total 1973 390 120 Output Total 2104 2079 210 Balance -131 -1690 -90 Result Diagrams: 11/28/17 01:34 11/28/17 01:34 <Freddy Bowen - Last Filed: 11/29/17 11:29> Phys Exam - Physical Examination Constitutional: NAD HEENT: PERRLA, moist MMs Neck: no nodes Respiratory: clear to auscultation bilateral Cardiovascular: RRR, no significant murmur Gastrointestinal: soft, non-tender Musculoskeletal: pulses present Neurological: moves all 4 limbs Psychiatric: A&O x 3 Deviation from normal: Some confusion this AM <Jarod Jesus - Last Filed: 11/29/17 09:12> Dx/Plan (1) Pleural mass Code(s): J94.9 - PLEURAL CONDITION, UNSPECIFIED Status: Acute Plan: POD#3 s/p thorcotomy w/ left upper lobe and chest wall bx w/ Pluer-X cath placement Path confirmed SCC Seen by onc yesterday w/ outpatient follow-up scheduled w/ Dr. Gallegos F/u w/ PCP for calcium monitoring (2) Hypercalcemia Code(s): E83.52 - HYPERCALCEMIA Status: Acute Plan: Elevated PTHrp w/ supporessed intact PTH and D-25 levels in outside clinic records in setting of pleural mass Likely malignany related w/ non-small cell carcinoma 10.2 s/p zometa administration Will continue to monitor calcium levels in the outpatient setting w/ repeat admin of zometa if indicated in 7 days (3) Hyperlipidemia Code(s): E78.5 - HYPERLIPIDEMIA, UNSPECIFIED Status: Acute Plan: Cont. w/ home atorvastatin <Jarod Jesus - Last Filed: 11/29/17 09:12> Attending Addendum - Attending Addendum Date/Time: 11/29/17 1125 I personally evaluated the patient and discussed the management with Dr. Jesus I agree with the History, Examination, Assessment and Plan documented above with any addition or exceptions noted below.Chest tube pulled and well tolerated. Patient has been dismissed. Confusion noted she redirects appropriately and will be discharged to home with family and will f/u Dr Gallegos (Oncology) and [facility] as outpatient. <Freddy Bowen - Last Filed: 11/29/17 11:29>
[2017-11-29 12:10] VITALS: BP 138/63
== END 2017-11-29 12:11 | disposition home or self-care (01) | DRG 164 ==
LOC: SURG A 08:54 → CCU 14:22
PROVIDERS: ADMIT Thoracic Surgery (Cardiothoracic Vascular Surgery); ATTEND Thoracic Surgery (Cardiothoracic Vascular Surgery)
PROC: 0BBG0ZX Excision of Left Upper Lung Lobe, Open Approach, Diagnostic (ICD-10-PCS; principal; 2017-11-26)
PROC: 0WB80ZX Excision of Chest Wall, Open Approach, Diagnostic (ICD-10-PCS; 2017-11-26)
PROC: 0W9B00Z Drainage of Left Pleural Cavity with Drainage Device, Open Approach (ICD-10-PCS; 2017-11-26)
PROC: 30233N1 Transfusion of Nonautologous Red Blood Cells into Peripheral Vein, Percutaneous Approach (ICD-10-PCS; 2017-11-27)
DX: C34.12 Malignant neoplasm of upper lobe, left bronchus or lung (principal); C79.89 Secondary malignant neoplasm of other specified sites; J91.0 Malignant pleural effusion; E83.52 Hypercalcemia; D63.0 Anemia in neoplastic disease; E78.5 Hyperlipidemia, unspecified; Z87.891 Personal history of nicotine dependence; Z79.899 Other long term (current) drug therapy
CPT/HCPCS: 36415; 36430; 71045; 80048; 82040; 83880; 85025; 86850; 86900; 86901; 88305; 88331; 88341; 88342; 93005; 93010; C1729; G8978-GP-CM; G8979-GP-CJ; J0131; J1200; J1940; J2001; J2405; J2704; J3010; J3489; J7050; P9016; P9045